=== PATIENT | male | born 1975 | race Two or more races ===

== ENCOUNTER 2022-06-14 20:53 | Inpatient (IN) | payer MEDICAID, OTHER ==
[~2022-06-14] VITALS: Ht 167.6 cm; Wt 158.1 kg
[2022-06-14 22:37] LABS: Basophils # (auto) 0.1 10 ^3/uL (0-0.2); Basophils % (auto) 1.3 % (0.0-2.0); Eosinophils # (auto) 0.4 10 ^3/uL (0-0.8); Eosinophils % (auto) 4.8 % (0.0-7.0); Hematocrit 40.6 % (41.0-53.0); Hemoglobin 12.7 g/dL (13.5-17.5); Lymphocytes # (auto) 0.9 10 ^3/uL (0.4-5.4); Lymphocytes % (auto) 10.8 % (10.0-50.0); Mean Corpuscular Hemoglobin 27.2 pg (28.0-32.0); Mean Corpuscular Hgb Conc. 31.3 g/dL (32.0-36.0); Mean Corpuscular Volume 87.1 fL (80.0-100.0); Monocytes # (auto) 0.9 10 ^3/uL (0-1.3); Monocytes % (auto) 10.2 % (0.0-12.0); Neutrophils # (auto) 6.3 10 ^3/uL (1.6-8.6); Neutrophils % (auto) 72.9 % (37.0-80.0); Red Blood Cells 4.66 10^6/uL (4.5-5.90); Red Cell Distribution Width 16.8 % (11.8-14.3); White Blood Cell 8.6 10^3/uL (4.4-10.8)
[2022-06-14 22:48] LABS: Albumin 2.9 g/dL (3.4-5.0); BUN/Creatinine Ratio 21.1; Calcium 8.6 mg/dL (8.5-10.1); Potassium 4.6 mmol/L (3.5-5.1)
[2022-06-14 22:51] LABS: Urine Bacteria FEW /hpf (None Seen); Urine Blood Negative /uL (Negative); Urine Mucus FEW (None Seen); Urine WBC 17 /hpf (0 - 3)
[2022-06-14 22:51] LABS: Total Protein 7.2 g/dL (6.4-8.2)
[2022-06-15] MEDS ORDERED: cefTRIAXone 1GM/50ML D5W 50 ML IV ONE (00:30)
[2022-06-15] MEDS ORDERED: MORPHINE SULFATE INJ 2 MG/ml SYRG IV PRN (02:30)
[2022-06-15] MEDS ORDERED: FUROSEMIDE 20 MG/2 ML VIAL IV ONE (02:30)
[2022-06-15] MEDS ORDERED: DEXTROSE (50%) 50ML SYRG IV PRN (02:30)
[2022-06-15] MEDS ORDERED: NITROGLYCERIN 0.4 MG SL TAB SL PRN (02:30)
[2022-06-15] MEDS ORDERED: ALBUTEROL SULF 2.5 MG/0.5ML(0.5%) NEB SOLN NEB PRN (02:30)
[2022-06-15] MEDS ORDERED: ONDANSETRON HCL 4 MG/2 ML VIAL IV PRN (02:30)
[2022-06-15 02:42] VITALS: BP 118/96
[2022-06-15] MEDS ORDERED: TEMAZEPAM 15 MG CAP PO ONE (02:45)
[2022-06-15] MEDS ORDERED: AZITHROMYCIN 500MG/ 250ML 250 ML IV SCH (03:00)
[2022-06-15] MEDS ORDERED: MIDODRINE HCL 10 MG TAB PO SCH (06:00)
[2022-06-15] MEDS: InsuLIN REG 1unit/0.01ml Soln (100units/ml) SC SCH ×4 (06:00→23:31)
[2022-06-15] MEDS ORDERED: FUROSEMIDE 40 MG TAB PO SCH (06:00)
[2022-06-15] MEDS: ACCU-CHEK COMFORT CURVE STRIP VI SCH ×4 (06:07→23:15)
[2022-06-15] MEDS: metOLazone 5 MG TAB PO SCH (10:00)
[2022-06-15] MEDS ORDERED: PANTOPRAZOLE 40 MG TAB PO SCH (10:00)
[2022-06-15] MEDS ORDERED: CLINDAMYCIN 600MG IV 50 ML IV ONE (10:15)
[2022-06-15] MEDS: SACUBITRIL-VALSARTAN 24mg/26mg TAB PO SCH ×3 (10:25→21:44)
[2022-06-15] MEDS: APIXABAN 2.5 MG TAB PO SCH ×3 (10:26→21:43)
[2022-06-15] MEDS: CARVEDILOL 3.125 MG TAB PO SCH ×3 (10:28→21:41)
[2022-06-15] MEDS: AMIODARONE HCL 200 MG TAB PO SCH ×3 (10:28→21:42)
[2022-06-15 12:28] LABS: INR 1.16 (0.9-1.15)
[2022-06-15 13:00] VITALS: BP 128/79
[2022-06-15] MEDS: CLINDAMYCIN 600MG IV 50 ML IV SCH ×2 (13:50→23:15)
[2022-06-15 15:34] VITALS: BP 128/79
[2022-06-15] MEDS: FUROSEMIDE 100 MG/10ML VIAL IV SCH (18:58)
[2022-06-15 21:49] VITALS: BP 119/81
[2022-06-15] MEDS ORDERED: cefTRIAXone 1GM/50ML D5W 50 ML IV SCH (22:00)
[2022-06-16] MEDS: FUROSEMIDE 100 MG/10ML VIAL IV SCH (05:16)
[2022-06-16] MEDS: ACCU-CHEK COMFORT CURVE STRIP VI SCH (05:16)
[2022-06-16 05:19] VITALS: BP 117/79
[2022-06-16] MEDS: InsuLIN REG 1unit/0.01ml Soln (100units/ml) SC SCH (05:38)
[2022-06-16 07:12] LABS: Basophils # (auto) 0.1 10 ^3/uL (0-0.2); Eosinophils # (auto) 0.3 10 ^3/uL (0-0.8); Eosinophils % (auto) 3.2 % (0.0-7.0); Hematocrit 39.4 % (41.0-53.0); Hemoglobin 12.3 g/dL (13.5-17.5); Lymphocytes # (auto) 0.9 10 ^3/uL (0.4-5.4); Lymphocytes % (auto) 9.5 % (10.0-50.0); Mean Corpuscular Hemoglobin 27.2 pg (28.0-32.0); Mean Corpuscular Hgb Conc. 31.2 g/dL (32.0-36.0); Mean Corpuscular Volume 87.2 fL (80.0-100.0); Monocytes % (auto) 11.2 % (0.0-12.0); Neutrophils # (auto) 6.7 10 ^3/uL (1.6-8.6); Neutrophils % (auto) 75.1 % (37.0-80.0); Red Blood Cells 4.51 10^6/uL (4.5-5.90); Red Cell Distribution Width 16.9 % (11.8-14.3)
[2022-06-16 07:29] LABS: INR 1.16 (0.9-1.15); Partial Thromboplastin Time 29.9 sec (24.6-33.4)
[2022-06-16 07:35] LABS: Albumin 2.6 g/dL (3.4-5.0); Calcium 8.7 mg/dL (8.5-10.1); Potassium 4.5 mmol/L (3.5-5.1)
[2022-06-16 07:40] LABS: BUN/Creatinine Ratio 22.2; Total Protein 6.9 g/dL (6.4-8.2)
[2022-06-16] MEDS: CLINDAMYCIN 600MG IV 50 ML IV SCH (08:00)
[2022-06-16 09:00] VITALS: BP 112/65
[2022-06-16] MEDS: CARVEDILOL 3.125 MG TAB PO SCH (10:00)
[2022-06-16] MEDS: metOLazone 5 MG TAB PO SCH (10:00)
[2022-06-16] MEDS: APIXABAN 2.5 MG TAB PO SCH (10:00)
[2022-06-16] MEDS: SACUBITRIL-VALSARTAN 24mg/26mg TAB PO SCH (10:00)
[2022-06-16] MEDS: AMIODARONE HCL 200 MG TAB PO SCH (10:00)
== END 2022-06-16 11:00 | disposition left against medical advice (07) | DRG 383 ==
LOC: EDBD 20:53 → ER 20:53 → TELE 06-15 02:17 → TELE-CENTR 06-15 09:03
PROVIDERS: ADMIT Nurse Practitioner; ATTEND Internal Medicine
DX: L03.115 Cellulitis of right lower limb (principal); J96.01 Acute respiratory failure with hypoxia; I50.41 Acute combined systolic (congestive) and diastolic (congestive) heart failure; K72.90 Hepatic failure, unspecified without coma; D68.69 Other thrombophilia; J18.9 Pneumonia, unspecified organism; Z68.43 Body mass index [BMI] 50.0-59.9, adult; E11.51 Type 2 diabetes mellitus with diabetic peripheral angiopathy without gangrene; L03.116 Cellulitis of left lower limb; E66.01 Morbid (severe) obesity due to excess calories; I11.0 Hypertensive heart disease with heart failure; I48.91 Unspecified atrial fibrillation; K74.60 Unspecified cirrhosis of liver; Z53.29 Procedure and treatment not carried out because of patient's decision for other reasons; N39.0 Urinary tract infection, site not specified; Z20.822 Contact with and (suspected) exposure to COVID-19; Z91.19 Patient's noncompliance with other medical treatment and regimen; Z95.810 Presence of automatic (implantable) cardiac defibrillator; Z79.4 Long term (current) use of insulin
CPT/HCPCS: 36415; 71045; 80053; 81001; 82140; 82962; 83036; 83605; 83880; 84443; 84484; 85025; 85610; 85730; 87040; 93005; 93306; 93925; 96365; 96367; 96375; 99291; G0378; J0696; J1815; J3490